=== PATIENT | female | born 1955 | race Caucasian/White ===

== ENCOUNTER 2017-12-18 16:33 | Emergency (ER) | payer BC, SELFPAY ==
[2017-12-18 16:46] VITALS: BP 147/74; PULSE 60; RESP 16; TEMP 36.6; O2SAT 100; BMI 29.2
--- NOTE | 2017-12-18 16:50 | DI.RAD.S_ITS ---
PROCEDURE: XR CHEST 2V INDICATIONS: coughing x 3-4 days TECHNIQUE: 2 views of the chest were acquired. COMPARISON: None. FINDINGS: Surgical changes and devices: None. Lungs and pleura: No pleural effusions or pneumothorax. Lungs are clear. Mediastinum: Mediastinal contours are normal. Heart size is normal. Bones and chest wall: No suspicious bony abnormalities. Soft tissues appear unremarkable. IMPRESSION: No acute pulmonary process. Dictated by: Silva Oswald M.D. on 12/18/2017 at 18:30 Approved by: Silva Oswald M.D. on 12/18/2017 at 18:30
--- NOTE | 2017-12-18 17:26 | ED_ITS ---
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 She states she has had a lot of fatigue. She comes in today due to onset of productive cough with rader sputum just in the last couple of days. She states that typically a Z-Cj is effective for this for her. 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 She then flew here from [place] over the weekend. She denies any wheeze or dyspnea. She denies any new lower extremity pain or swelling or any other known exposures. She denies any fever, chills, or sweats or other new complaints on systems review. Related Data Home Medications Medication Instructions Recorded Confirmed acetaminophen [Tylenol] 325 mg PO PRN PRN 12/18/17 12/18/17 oxybutynin chloride 10 mg PO DAILY 12/18/17 12/18/17 Previous Rx's Medication Instructions Recorded amoxicillin-pot clavulanate 1 tab PO Q12H #20 tab 12/18/17 [Augmentin] Review of Systems <Denise Chacon PA-C - Last Filed: 12/18/17 22:14> Review of Systems All systems reviewed & are unremarkable except as noted in HPI and below Exam <Denise Chacon PA-C - Last Filed: 12/18/17 22:14> Narrative Exam Narrative: GENERAL APPEARANCE: Patient sitting comfortably, in no distress. HEAD: No sinus TTP. EYES: PERRL, EOMI. EARS: Normal auditory canals, TMS intact with normal light reflexes. ORAL CAVITY: Normal oropharynx. THROAT: No exudate, postnasal drip noted NECK/THYROID: Neck supple, full range of motion, no cervical lymphadenopathy. LUNGS: Clear to auscultation bilaterally, no cough on exam. HEART: RRR without murmur, nl S1, S2, no S3 or S4. EXTREMITIES: No edema or calf TTP Initial Vital Signs Initial Vital Signs: Vital Signs Temperature 98 F 12/18/17 16:46 Pulse Rate 60 12/18/17 16:46 Respiratory Rate 16 12/18/17 16:46 Blood Pressure 147/74 H 12/18/17 16:46 Pulse Oximetry 100 12/18/17 16:46 <DO Linda Joe Last Filed: 12/19/17 04:07> Initial Vital Signs Initial Vital Signs: Vital Signs Temperature 98 F 12/18/17 16:46 Pulse Rate 60 12/18/17 16:46 Respiratory Rate 16 12/18/17 16:46 Blood Pressure 147/74 H 12/18/17 16:46 Pulse Oximetry 100 12/18/17 16:46 Course <VICENTE Chávez Last Filed: 12/18/17 22:14> Additional Information: Review normal chest x-ray with patient, likelihood that this is a viral infection. She did request antibiotic be sent to pharmacy as she is going to be on a long road trip and would not have access if needed. I sent in Augmentin for her to starting case of localized sinus pain, new fever etc. She is going to start this only if needed for worsening symptoms Orders Ordered: ED Orders 12/18/17 16:50 XR chest 2V Stat Vital Signs - 8 hr 12/18/17 16:46 12/18/17 18:54 Temperature 98 F Pulse Rate 60 66 Respiratory Rate 16 16 Blood Pressure 147/74 H 127/77 H Pulse Oximetry 100 99 <DO Linda Joe Last Filed: 12/19/17 04:07> Orders Ordered: ED Orders 12/18/17 16:50 XR chest 2V Stat Vital Signs - 8 hr 12/18/17 16:46 12/18/17 18:54 Temperature 98 F Pulse Rate 60 66 Respiratory Rate 16 16 Blood Pressure 147/74 H 127/77 H Pulse Oximetry 100 99 MDM - URI/Sore Throat <VICENTE Chávez Last Filed: 12/18/17 22:14> Imaging Data Chest x-ray: Radiologist's impression: View Report History [address] [address] XRay Report Signed Patient: CASIMIRO EDMOND MR#: [id number] : 1955 Acct:[id number] Age/Sex: 62 / F Date of Service: 12/18/17 Loc: ED Accession Number: [id number] Procedure: XR chest 2V Ordering Provider: Garrick Green D.O. PROCEDURE: XR CHEST 2V INDICATIONS: coughing x 3-4 days TECHNIQUE: 2 views of the chest were acquired. COMPARISON: None. FINDINGS: Surgical changes and devices: None. Lungs and pleura: No pleural effusions or pneumothorax. Lungs are clear. Mediastinum: Mediastinal contours are normal. Heart size is normal. Bones and chest wall: No suspicious bony abnormalities. Soft tissues appear unremarkable. IMPRESSION: No acute pulmonary process. Dictated by: Silva Oswald M.D. on 12/18/2017 at 18:30 Approved by: Silva Oswald M.D. on 12/18/2017 at 18:30 Discharge Plan Departure Patient Disposition: Home, Self-Care Clinical Impression: Upper respiratory infection Discharge Date/Time: 12/18/17 18:56 Interventions: ED Discharge Assessment Last Done: 12/18/17 18:54 Instructions: DI for Viral Upper Respiratory Infection -- Adult Activity Restrictions/Additional Instructions: Return as we talked about if you have any acutely worsening symptoms. I have prescribed Augmentin for you to take if you start to have worsening symptoms while you are traveling, i.e. localized sinus pain or fever. Otherwise, your symptoms are likely to resolve on their own within a week to 10 days. Best wishes with your travels and family! Thank you for your patience with the long wait today Prescriptions: New amoxicillin-pot clavulanate [Augmentin] 875-125 mg tablet 1 tab PO Q12H Qty: 20 RF: 0 No Action oxybutynin chloride 10 mg tablet extended release 24hr 10 mg PO DAILY RF: 0 acetaminophen [Tylenol] 325 mg Tablet 325 mg PO PRN PRN (Reason: Pain, Mild) RF: 0 <Lakeisha Gold DO - Last Filed: 12/19/17 04:07> Cosign ED Attending Mandoature Attestation: I was immediately available in the department for consultation. Documentation has been reviewed. I agree with assessment and plan.
[2017-12-18 18:54] VITALS: BP 127/77; PULSE 66; RESP 16; O2SAT 99
== END 2017-12-18 18:56 | disposition home or self-care (01) ==
PROVIDERS: Emergency Provider Internal Medicine
DX: J06.9 Acute upper respiratory infection, unspecified (principal)
CPT/HCPCS: 71046; 99282; 99283